=== PATIENT | male | born 1945 | race Caucasian/White ===

== ENCOUNTER 2017-05-24 14:02 | Emergency (ER) | payer MEDICARE, BC ==
[~2017-05-24] VITALS: Ht 177.8 cm; Wt 89.4 kg
[2017-05-24] MEDS ORDERED: SODIUM CHLORIDE FLUSH 10ML SYR IVF ONE (14:30)
[2017-05-24] MEDS ORDERED: SODIUM CHLORIDE 0.9% 1,000ML IVBOLUS ONE (14:30)
[2017-05-24 14:56] LABS: BLOOD UREA NITROGEN 12 mg/dL (7-18)
[2017-05-24 15:01] LABS: ASPARTATE AMINO TRANSFERASE 18 U/L (15-37)
[2017-05-24] MEDS ORDERED: ATOR20TA9 PO (15:51)
[2017-05-24 17:19] VITALS: BP 131/77
== END 2017-05-24 17:23 | disposition home or self-care (01) ==
LOC: ED 17:17
DX: R42 Dizziness and giddiness (principal); R00.1 Bradycardia, unspecified
CPT/HCPCS: 36415; 80053; 85025; 93005; 99285; J7030

== ENCOUNTER → 2017-06-23 | Outpatient (CLI) | payer MEDICARE, BC ==
[~2017-06-23] MED LIST: ATOR20TA9 PO
== END | disposition home or self-care (01) ==
LOC: CFH 12:36
PROVIDERS: ATTEND Internal Medicine Cardiovascular Disease
DX: I08.3 Combined rheumatic disorders of mitral, aortic and tricuspid valves (principal); E78.5 Hyperlipidemia, unspecified; Z87.891 Personal history of nicotine dependence
CPT/HCPCS: 93306

== ENCOUNTER → 2017-10-13 | Outpatient (CLI) | payer MEDICARE, BC ==
[~2017-10-13] MED LIST changes: +GADOBUTROL 10 MMOL/10 ML PFS ONE
== END | disposition home or self-care (01) ==
LOC: CFH 15:06
PROVIDERS: ATTEND Otolaryngology
DX: G93.0 Cerebral cysts (principal); G93.89 Other specified disorders of brain; R90.82 White matter disease, unspecified; Z86.73 Personal history of transient ischemic attack (TIA), and cerebral infarction without residual deficits
CPT/HCPCS: 70553; A9585

== ENCOUNTER 2021-07-25 13:27 | Day surgery (SDC) | payer MEDICARE, BC ==
[2021-07-24 08:14] LABS: BASOPHILS % (AUTO) 1 % (0-1); EOSINOPHILS % (AUTO) 5 % (1-7); LYMPHOCYTES % (AUTO) 31 % (22-44); MEAN CORPUSCULAR HGB CONC 34.3 g/dL (33.2-36.2); MEAN PLATELET VOLUME 7.8 fL (7.4-10.4); MONOCYTES % (AUTO) 11 % (2-9); NEUTROPHILS % (AUTO) 53 % (42-75); PLATELET COUNT 196 x10^3/uL (130-400); RED BLOOD COUNT 4.42 x10^6/uL (4.38-5.82); RED CELL DISTRIBUTION WIDTH 13.6 % (9.4-14.8)
[2021-07-24 08:21] LABS: ANION GAP 6 mmol/L (5-15); CALCIUM 8.5 mg/dL (8.5-10.1); CHLORIDE 102 mmol/L (98-107); CREATININE 0.75 mg/dL (0.7-1.3)
[~2021-07-25] VITALS: Ht 177.8 cm; Wt 83.4 kg
[~2021-07-25 13:27] MED LIST changes: +ASCO1TAB4 PO; +ASPI81TA45 PO; +ATOR20TA37 PO; -ATOR20TA9 PO; +BUPIVACAINE/PF 0.25% ONE; +CHOL10003 PO; +EPINEPHRINE 1 MG/ML, 1ML ONE; +FISH1CAP PO; -GADOBUTROL 10 MMOL/10 ML PFS ONE; +GLUC-149 PO; +TRAM50TA2 PO; +VITAMIN B12 PO
[2021-07-25 13:42] VITALS: BP 149/80
[2021-07-25] MEDS ORDERED: CHLORHEXIDINE 15 ML UDC ONE (13:46)
[2021-07-25] MEDS ORDERED: LIDOCAINE-MPF 1%, 2ML ONE (13:46)
[2021-07-25] MEDS ORDERED: LIDOCAINE-MPF 1%, 2ML INFIL ONE (14:00)
[2021-07-25] MEDS ORDERED: CHLORHEXIDINE 15 ML UDC PO ONE (14:00)
[2021-07-25] MEDS ORDERED: LACTATED RINGERS 1,000 ML IV SCH (14:00)
[2021-07-25] MEDS ORDERED: BUPIVACAINE/PF 0.5% ONE (15:13)
[2021-07-25] MEDS ORDERED: FENTANYL PF 250 MCG/5ML ONE (15:21)
[2021-07-25] MEDS ORDERED: HYDROmorphone 1 MG/ML, 1ML INJ IVPush PRN (15:30)
[2021-07-25] MEDS ORDERED: FENTANYL PF 100 MCG/2ML IV PRN (15:30)
[2021-07-25] MEDS ORDERED: LABETALOL 5MG/ML, 20ML IV PRN (15:30)
[2021-07-25] MEDS ORDERED: MEPERIDINE/PF 25MG/0.5ML IVPush PRN (15:30)
[2021-07-25] MEDS ORDERED: hydrALAzine 20 MG/ML, 1ML IV PRN (15:30)
[2021-07-25] MEDS ORDERED: morphine SULFATE 10 MG/ML, 1ML IVPush PRN (15:30)
[2021-07-25] MEDS ORDERED: ACETAMINOPHEN 325 MG TABLET PO PRN (15:30)
[2021-07-25] MEDS ORDERED: OXYcodone 5 MG/5 ML ORAL.SOL UDC PO PRN (15:30)
[2021-07-25] MEDS ORDERED: ONDANSETRON 2MG/ML, 2ML IVPush PRN (15:30)
[2021-07-25] MEDS ORDERED: BUPIVACAINE/PF-EPI 0.5% 1:200K INFIL ONE (16:02)
[2021-07-25] MEDS ORDERED: GLYCOPYRROLATE 0.2MG/1ML, 5ML ONE (16:27)
[2021-07-25] MEDS ORDERED: NEOSTIGMINE 1 MG/ML, 10ML ONE (16:27)
[2021-07-25] MEDS ORDERED: PROPOFOL 10 MG/ML, 20ML ONE (16:27)
[2021-07-25] MEDS ORDERED: ROCURONIUM 10MG/ML,5ML ONE (16:27)
[2021-07-25] MEDS ORDERED: CEFAZOLIN 1,000 MG ONE (16:27)
== END 2021-07-25 18:15 | disposition home or self-care (01) ==
LOC: OR 13:27
PROVIDERS: ATTEND Surgery
DX: K40.90 Unilateral inguinal hernia, without obstruction or gangrene, not specified as recurrent (principal); E78.5 Hyperlipidemia, unspecified; M19.90 Unspecified osteoarthritis, unspecified site; Z79.899 Other long term (current) drug therapy; Z88.8 Allergy status to other drugs, medicaments and biological substances; Z79.82 Long term (current) use of aspirin; Z87.891 Personal history of nicotine dependence; Z20.822 Contact with and (suspected) exposure to COVID-19
CPT/HCPCS: 36415; 49505; 80048; 85025; 93005; C1781; J0171; J0690; J2704; J2710; J3010; J7120; U0003; U0005

== ENCOUNTER 2021-07-30 09:04 | Emergency (ER) | payer MEDICARE, BC ==
[~2021-07-30] VITALS: Ht 177.8 cm; Wt 83.1 kg
[~2021-07-30 09:04] MED LIST changes: -BUPIVACAINE/PF 0.25% ONE; -EPINEPHRINE 1 MG/ML, 1ML ONE
[2021-07-30 09:52] LABS: BASOPHILS % (AUTO) 1 % (0-1); EOSINOPHILS % (AUTO) 4 % (1-7); LYMPHOCYTES % (AUTO) 27 % (22-44); MEAN CORPUSCULAR HEMOGLOBIN 32.3 pg (27.5-34.5); MEAN CORPUSCULAR HGB CONC 34.4 g/dL (33.2-36.2); MEAN PLATELET VOLUME 7.9 fL (7.4-10.4); MONOCYTES % (AUTO) 9 % (2-9); NEUTROPHILS % (AUTO) 60 % (42-75); PLATELET COUNT 231 x10^3/uL (130-400); RED BLOOD COUNT 4.47 x10^6/uL (4.38-5.82); RED CELL DISTRIBUTION WIDTH 14.2 % (9.4-14.8)
[2021-07-30 10:03] LABS: ALBUMIN 3.6 g/dL (3.4-5.0); CALCIUM 8.7 mg/dL (8.5-10.1); CHLORIDE 102 mmol/L (98-107); CREATININE 0.78 mg/dL (0.7-1.3)
[2021-07-30 10:17] LABS: ANION GAP 6 mmol/L (5-15)
[2021-07-30 10:57] VITALS: BP 144/86
== END 2021-07-30 10:59 | disposition home or self-care (01) ==
LOC: ED 09:07
DX: G57.11 Meralgia paresthetica, right lower limb (principal)
CPT/HCPCS: 36415; 80048; 82040; 85025; 99283